=== PATIENT | female | born 1995 | race Caucasian/White ===

== ENCOUNTER 2018-05-30 00:06 | Emergency (ER) | payer OTHER, SELFPAY ==
[2018-05-30 00:08] VITALS: BP 149/87; PULSE 86; RESP 15; TEMP 36.4; O2SAT 98; BMI 26.9
--- NOTE | 2018-05-30 00:55 | CT_ITS ---
STUDY: CT BRAIN WITHOUT CONTRAST REASON FOR EXAM: Female, 22 years old. Dizziness, nausea. RADIATION DOSAGE (If Supplied By Facility): CTDIvol = ( 44.99 ) mGy, DLP = ( 711.75 ) mGycm TECHNIQUE: Transaxial CT imaging of the brain was performed without administration of intravenous contrast material. Individualized dose optimization techniques were used for this CT. COMPARISON: Report of study from October 28, 2010. FINDINGS: Normal soft tissue structures. Normal calvarium. Normal size ventricles and extra-axial spaces for the patient's age. Normal white matter tracts of the cerebral hemispheres. Normal basal ganglia and thalami. Normal brainstem. Normal cerebellum. There is no intracranial hemorrhage. There are no findings of an acute ischemic infarction. Normal visualized paranasal sinuses. CT/Brain/Head without Contrast IMPRESSION: Normal unenhanced CT scan of the brain. Electronically Signed: Tab Oliveira MD at 3:10 EDT , Service support ,
[2018-05-30] MEDS: DiphenhydrAMINE 50 MG/ML Syringe 25 MG IV (01:19)
[2018-05-30] MEDS: 0.9% Normal Saline 1,000 ML 999 ML IV (01:19)
[2018-05-30] MEDS: proCHLORPERazine 10 MG/2 ML Vial IV (01:19)
--- NOTE | 2018-05-30 02:33 | ED.VISSUMM ---
- ER Visit Summary Date of Service: 05/30/18 Chief Complaint: Headache History of Present Illness: The patient is a 22 F presenting with headache, dizziness. She states it started earlier while at work. She states she had a gradual onset headache. She has had nausea with no vomiting. She states initially she was seeing spots and this is now resolved. No trauma. Denies fever. Denies other complaints. Physical Examination: Vitals are stable. Patient is afebrile. Alert no acute distress. HEENT exam is unremarkable. Neck is supple. No meningismus Lungs are clear and equal bilaterally. Heart is regular rate and rhythm. Abdomen is soft nontender nondistended. Extremities are unremarkable. Skin is warm and dry. No focal neurologic deficit. Remainder of exam is unremarkable. Emergency Department Course and Treatment: Patient given Compazine, Benadryl. CT head shows no acute process. On reevaluation, patient states her headache is completely resolved. She is advised to follow-up with her primary care physician. Advised return to ED if worsening complaints. Disposition: Discharge home Impression: Headache This note was generated with [employer] dictation software. It may contain incorrect words, spelling, and punctuation that were not noted in review of the chart prior to signing ED Disposition - Plan for ED Patient: Chief Complaint: Dizziness Instructions: ED Cephalgia Unspecified Referrals: Dong Monique DO [Primary Care Provider] -
--- NOTE | 2018-05-30 03:18 | ED.DEP ---
ED Disposition - Plan for ED Patient: Chief Complaint: Dizziness Instructions: ED Cephalgia Unspecified Referrals: Dong Monique DO [Primary Care Provider] -
== END 2018-05-30 03:37 | disposition home or self-care (01) ==
PROVIDERS: Emergency Provider Emergency Medicine; Family Provider Student in an Organized Health Care Education/Training Program; PCP Student in an Organized Health Care Education/Training Program
DX: R51 Headache (principal); F41.9 Anxiety disorder, unspecified; Z79.899 Other long term (current) drug therapy
CPT/HCPCS: 70450; 96361; 96374; 96375; 99284; J7030; A4216

== ENCOUNTER 2020-05-29 19:43 | Emergency (ER) | payer OTHER, SELFPAY ==
[2020-05-29 20:04] VITALS: BP 137/76; PULSE 114; RESP 19; TEMP 36.7; O2SAT 97; BMI 35.6
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
[2020-05-29] MEDS: Acetaminophen 500 MG Tablet 1000 MG PO (22:34)
[2020-05-29 23:22] VITALS: BP 128/72; PULSE 78; RESP 16; O2SAT 99
== END 2020-05-29 23:23 | disposition home or self-care (01) ==
PROVIDERS: Emergency Provider Emergency Medicine; PCP Student in an Organized Health Care Education/Training Program
DX: S61.412A Laceration without foreign body of left hand, initial encounter (principal); T22.211A Burn of second degree of right forearm, initial encounter; T23.062A Burn of unspecified degree of back of left hand, initial encounter; S80.812A Abrasion, left lower leg, initial encounter; S50.02XA Contusion of left elbow, initial encounter; V43.52XA Car driver injured in collision with other type car in traffic accident, initial encounter; Y93.I9 Activity, other involving external motion; Y92.410 Unspecified street and highway as the place of occurrence of the external cause; Y99.8 Other external cause status
CPT/HCPCS: 12001; 71046; 73080; 73090; 73130; 73564; 99284